=== PATIENT | female | born 1945 | race Caucasian/White ===

== ENCOUNTER → 2017-11-06 | Day surgery (SDC) | payer MEDICARE, BC ==
[2017-11-05 10:52] VITALS: BMI 34.3
[~2017-11-06] MED LIST: HYDROcodone/Acetaminophen 5/325 mg Tablet ONE; Iopamidol-M 200 41% 20 ML VIAL ONE
[2017-11-06 07:52] VITALS: TEMP 97.9
--- NOTE | 2017-11-06 10:44 | RAD ---
LUMBAR MYELOGRAM: Date: 11/06/17 HISTORY: Spondylosis. Lumbar radiculopathy. COMPARISON: None. EXPOSURE: 0.6 minutes. 891.2 mGy*m^2. FINDINGS: Initial insights analyst radiograph of lumbar spine demonstrates slight rightward curvature of the lumbar spine. There are five lumbar-type vertebral bodies. There is loss of disc space height and osteophyte forma tion, as well as sclerosis at L1-L2 and L2-L3. There are posterior fusion changes at L5 and at S1. Di sc prosthesis at L5-S1. Successful lumbar puncture. A total of 9 mL of Isovue-200M contrast was administered intrathecally. N o immediate postprocedure complications. TECHNIQUE: Consent obtained to perform a lumbar puncture for intrathecal contrast administration. Patient's back was evaluated. The L1-L2 level was deemed appropriate. Skin was prepped and draped in the sterile fa shion. 1% lidocaine, buffered with sodium bicarbonate, was used for local anesthesia. Under fluorosco pic guidance, a 22 gauge spinal needle was advanced into the CSF space. Via a short tubing catheter, a total of 9 mL of Isovue-200M contrast was administered intrathecally. The patient tolerated the pro cedure well. No immediate or postprocedure complications. IMPRESSION: Successful lumbar puncture for intrathecal contrast administration. POS: [facility]
--- NOTE | 2017-11-06 11:25 | CT ---
[facility] LUMBAR SPINE MYELOGRAM: Date: 11/06/17 HISTORY: Lumbar fusion. Lumbar radiculopathy. COMPARISON: None. TECHNIQUE: Post myelogram lumbar spine CT is performed on the axial plane. Reformatted images are submitted for interpretation. FINDINGS: There is slight rightward curvature of the lumbar spine with apex at L3. There are bilateral transped icular screws at L5 and S1. No perihardware lucency. Disc prosthesis at L5-S1. 3.4 mm of retrolisthesis of L1 upon L2, 3.0 mm of retrolisthesis of L2 upon L3, and 3.3 mm of anterol isthesis of L4 upon L5. Vacuum disc phenomenon at T11-T12, L1-L2, L2-L3, and L4-L5. Conus medullaris terminates at the mid L1 level. T11-T12: No significant central canal stenosis or foraminal narrowing. T12-L1: No significant central canal stenosis or foraminal narrowing. Desiccation with severe loss of disc space height. Nevertheless, no significant central canal stenosi s. Mild bilateral neural foraminal narrowing. L2-L3: Desiccation with severe loss of disc space height. Nevertheless, no high grade central canal stenosis . Right neural foramen is patent. Mild left foraminal narrowing. L3-L4: No significant loss of disc space height. No significant central canal stenosis. Neural foramina peterson nt. L4-L5: There is evidence of previous laminectomy change. There is soft tissue attenuation with focal air att enuation in the anterior epidural space. Air is presumed to be due to the vacuum disc phenomenon with the associated disc. Infection or other etiologies are less favored, but cannot be excluded. There i s some abnormal soft tissue attenuation in the anterior epidural space. There is mild posterior eleme nt hypertrophy. There is some mild central canal stenosis secondary to the abnormal soft tissue densi ty and air in the anterior epidural space which results in some mass effect upon the ventral thecal s ac. Mild bilateral neural foraminal narrowing. L5-S1: No significant central canal stenosis. Neural foramina apparent to be grossly patent. Evaluation of t he L5-S1 level is limited by beam attenuation artifact due to posterior element fusion hardware. IMPRESSION: 1. Postsurgical changes as described above. 2. Abnormal soft tissue attenuation and air attenuation in the anterior epidural space at L4-L5. The re is resultant mild central canal stenosis. Soft tissue and air is presumed to be due to a combinati on of postsurgical change as well disc material. The air may represent a disc protrusion with a compo nent of the vacuum disc phenomenon extending into that protrusion. The presence of air does also rais e the possibility of possible phlegmon or infection collection. Clinical correlation is essential. CODE T. POS: [facility]
== END ==
LOC: RAD 07:18
PROVIDERS: ATTEND Neurological Surgery
PROC: B02BY0Z Computerized Tomography (CT Scan) of Spinal Cord using Other Contrast, Unenhanced and Enhanced (ICD-10-PCS; principal; 2017-11-06)
DX: M48.061 Spinal stenosis, lumbar region without neurogenic claudication (principal); M47.26 Other spondylosis with radiculopathy, lumbar region; I10 Essential (primary) hypertension; E11.42 Type 2 diabetes mellitus with diabetic polyneuropathy; M70.61 Trochanteric bursitis, right hip; D64.9 Anemia, unspecified; M19.90 Unspecified osteoarthritis, unspecified site; G25.81 Restless legs syndrome; G89.29 Other chronic pain; Z88.8 Allergy status to other drugs, medicaments and biological substances; Z79.899 Other long term (current) drug therapy
CPT/HCPCS: 62304; 72132

== ENCOUNTER 2018-03-03 13:00 | Outpatient (CLI) | payer MEDICARE, BC ==
--- NOTE | 2018-03-03 14:01 | RAD ---
LUMBOSACRAL SPINE TWO VIEWS: HISTORY: Follow up back surgery. Low back pain. COMPARISON: 06/15/2015 FINDINGS: Three views of the lumbosacral spine show the patient to be status post posterior fusion of L4 throug h S1 with bilateral pedicle screws. Disk spacers are seen in the L4-L5 and L5-S1 intervertebral disk spaces. There is grade 2 anterolisthesis of L4 on L5. No perihardware lucency is identified. Lami nectomies have been performed in the lower lumbosacral spine. IMPRESSION: Post surgical changes in the lumbar spine with spondylolisthesis of L4 and L5. POS: [facility]
== END 2018-03-03 13:01 | disposition home or self-care (01) ==
LOC: TBSIIMAG 13:00
PROVIDERS: ATTEND Neurological Surgery
DX: M51.26 Other intervertebral disc displacement, lumbar region (principal); M43.16 Spondylolisthesis, lumbar region; Z98.890 Other specified postprocedural states
CPT/HCPCS: 72100

== ENCOUNTER 2018-06-29 13:59 | Outpatient (CLI) | payer MEDICARE, BC ==
--- NOTE | 2018-06-29 14:39 | RAD ---
XR Lumbar Spine Bending Min 4V History: [M [age] lumb[age] with sciatica] Comparison: Radiograph February 2018 Findings: Similar appearance posterior spinal fusion at L4-S1 with L4 over L5 anterolisthesis. Discec thong spacers are similar in the AP and transverse locations. Moderate dextro scoliosis. No evidence for hardware dysfunction. Impression: Similar postoperative appearance. Listhesis of L4 over L5 is similar. No translation with flexion or extension.
== END 2018-06-29 14:00 | disposition home or self-care (01) ==
LOC: TBSIIMAG 13:59
PROVIDERS: ATTEND Neurological Surgery
DX: M54.40 Lumbago with sciatica, unspecified side (principal); M43.16 Spondylolisthesis, lumbar region; Z98.890 Other specified postprocedural states
CPT/HCPCS: 72120